=== PATIENT | male | born 1945 | race Caucasian/White ===

== ENCOUNTER → 2016-09-12 | Outpatient (CLI) | payer MEDICARE, OTHER ==
[2014-11-12 10:29] VITALS: BP 134/97
[~2016-09-12] MED LIST: CRESTOR20 MG PO; DOXAZOSIN4 MG PO; GABAPENTIN300 MG PO; GOOD SENSE ASPI81 M1 PO; HUMALOG 75/2100 U/ML SC; INVOKANA300 MG PO; LOSARTAN POTASS50 MG PO; LYRICA75 MG PO; METFORMIN500 MG PO; MULTI VITAMINS1 TAB PO; OMEGA-31000 MG PO; PRILOSEC 20MG20 MG PO
== END ==
LOC: LAB 09:46
DX: Z12.5 Encounter for screening for malignant neoplasm of prostate (principal); Z85.46 Personal history of malignant neoplasm of prostate

== ENCOUNTER → 2017-01-08 | Outpatient (CLI) | payer MEDICARE, OTHER ==
[2014-11-12 10:29] VITALS: BP 134/97
== END ==
LOC: MAMMO 07:56 → RAD 07:56
DX: N63.10 Unspecified lump in the right breast, unspecified quadrant (principal); R92.2 Inconclusive mammogram; M25.511 Pain in right shoulder; M19.011 Primary osteoarthritis, right shoulder; M75.81 Other shoulder lesions, right shoulder; M65.811 Other synovitis and tenosynovitis, right shoulder; W19.XXXA Unspecified fall, initial encounter; Y92.009 Unspecified place in unspecified non-institutional (private) residence as the place of occurrence of the external cause

== ENCOUNTER → 2017-01-10 | Outpatient (CLI) | payer MEDICARE, OTHER ==
[2014-11-12 10:29] VITALS: BP 134/97
== END ==
LOC: RAD 10:41
DX: M25.511 Pain in right shoulder (principal)

== ENCOUNTER 2017-03-07 09:00 | Outpatient (RCR) | payer MEDICARE, OTHER ==
[2014-11-12 10:29] VITALS: BP 134/97
== END 2017-03-07 09:30 | disposition home or self-care (01) ==
LOC: PT 09:00
DX: M25.511 Pain in right shoulder (principal)
CPT/HCPCS: G8978-GP; G8979-GP

== ENCOUNTER → 2017-04-09 | Outpatient (CLI) | payer MEDICARE, OTHER ==
[2014-11-12 10:29] VITALS: BP 134/97
== END ==
LOC: RAD 13:00
DX: M19.011 Primary osteoarthritis, right shoulder (principal); S46.811A Strain of other muscles, fascia and tendons at shoulder and upper arm level, right arm, initial encounter; M75.21 Bicipital tendinitis, right shoulder; M25.411 Effusion, right shoulder; M75.51 Bursitis of right shoulder

== ENCOUNTER → 2017-06-01 | Outpatient (CLI) | payer MEDICARE, OTHER ==
[2014-11-12 10:29] VITALS: BP 134/97
== END ==
LOC: RAD 08:51
DX: N28.89 Other specified disorders of kidney and ureter (principal); Z98.890 Other specified postprocedural states; Z90.49 Acquired absence of other specified parts of digestive tract
CPT/HCPCS: Q9967

== ENCOUNTER → 2017-06-14 | Outpatient (CLI) | payer MEDICARE, OTHER ==
[2014-11-12 10:29] VITALS: BP 134/97
== END ==
LOC: LAB 13:13
DX: Z85.46 Personal history of malignant neoplasm of prostate (principal)

== ENCOUNTER 2017-08-03 14:30 | Outpatient (RCR) | payer MEDICARE, OTHER ==
[2014-11-12 10:29] VITALS: BP 134/97
== END 2017-08-05 | disposition home or self-care (01) ==
LOC: PT
DX: Z47.89 Encounter for other orthopedic aftercare (principal)
CPT/HCPCS: G8985-GP

== ENCOUNTER → 2017-08-13 | Outpatient (CLI) | payer MEDICARE, OTHER ==
[2014-11-12 10:29] VITALS: BP 134/97
[2017-08-13 15:02] LABS: EOS # 0.5 (0.04-0.40); EOS % 4.7 % (0.0-4.0); HEMATOCRIT 39.1 % (42.0-52.0); HEMOGLOBIN 11.9 g/dL (13.5-18.0); LYMPH# 1.9 (1.50-4.00); MEAN CELL VOLUME 84 fl (78-100); MEAN CORPUSCULAR HEMOGLOBIN 26 pg (27-31); MEAN CORPUSCULAR HGB CONC 30 g/dL (33-37); MEAN PLATELET VOLUME 9.6 fl (7.4-10.4); MONO # 1.1 (0.20-0.80); NEU # 7.2 (1.40-6.50); PLATELET COUNT 304 K/mm3 (130-400); RED BLOOD COUNT 4.67 M/mm3 (4.20-5.60); RED CELL DISTRIBUTION WIDTH 15.2 % (11.5-14.5); WHITE BLOOD COUNT 10.7 K/mm3 (4.8-10.8)
[2017-08-13 15:18] LABS: ALBUMIN 3.7 g/dL (3.5-5.0); BUN/CREATININE RATIO 15.3 (6.0-26.0); CALCIUM 8.5 mg/dL (8.4-10.2); POTASSIUM 4.2 mmol/L (3.6-5.0); TOTAL BILIRUBIN 0.6 mg/dL (0.2-1.3); TOTAL PROTEIN 8.2 g/dL (6.3-8.2)
[2017-08-13 15:47] LABS: URINE APPEARANCE BLOODY; URINE COLOR RED
[2017-08-13 15:48] LABS: URINE BLOOD 250 ery/uL (NEGATIVE); URINE LEUKOCYTE ESTERASE 2+ (NEGATIVE); URINE NITRATE NEGATIVE (NEGATIVE)
[2017-08-13 15:49] LABS: URINE WBC >50 /hpf (0-3)
== END ==
LOC: LAB 14:46
PROVIDERS: Family Medicine
DX: C61 Malignant neoplasm of prostate (principal); N28.89 Other specified disorders of kidney and ureter; R30.0 Dysuria; R31.9 Hematuria, unspecified

== ENCOUNTER 2017-09-15 20:07 | Emergency (ER) | payer MEDICARE, OTHER ==
[~2017-09-15] VITALS: Ht 172.7 cm; Wt 84.5 kg
[2017-09-15 20:39] LABS: EOS # 0.2 (0.04-0.40); EOS % 1.7 % (0.0-4.0); HEMATOCRIT 33.3 % (42.0-52.0); HEMOGLOBIN 10.2 g/dL (13.5-18.0); LYMPH# 1.8 (1.50-4.00); MEAN CELL VOLUME 83 fl (78-100); MEAN CORPUSCULAR HEMOGLOBIN 25 pg (27-31); MEAN CORPUSCULAR HGB CONC 31 g/dL (33-37); MEAN PLATELET VOLUME 9.5 fl (7.4-10.4); MONO # 0.9 (0.20-0.80); NEU # 7.9 (1.40-6.50); PLATELET COUNT 243 K/mm3 (130-400); RED BLOOD COUNT 4.02 M/mm3 (4.20-5.60); RED CELL DISTRIBUTION WIDTH 15.9 % (11.5-14.5); WHITE BLOOD COUNT 10.8 K/mm3 (4.8-10.8)
[2017-09-15 20:47] LABS: URINE APPEARANCE CLEAR; URINE COLOR YELLOW; URINE KETONE NEGATIVE (NEGATIVE); URINE PROTEIN(semi-quant) NEGATIVE (NEGATIVE)
[2017-09-15 20:48] LABS: BUN/CREATININE RATIO 16.1 (6.0-26.0); CALCIUM 8.1 mg/dL (8.4-10.2)
[2017-09-15 20:48] LABS: URINE BILIRUBIN NEGATIVE (NEGATIVE); URINE BLOOD TRACE (NEGATIVE); URINE LEUKOCYTE ESTERASE 1+ (NEGATIVE); URINE NITRATE NEGATIVE (NEGATIVE); URINE UROBILINOGEN NORMAL (NORMAL)
[2017-09-15 21:00] LABS: POTASSIUM 4.2 mmol/L (3.6-5.0)
[2017-09-15] MEDS ORDERED: SEPTRA DS 8001 TAB PO (21:43)
[2017-09-15 21:52] VITALS: BP 110/68
== END 2017-09-15 21:52 | disposition home or self-care (01) ==
LOC: ED 20:07
PROVIDERS: Family Medicine
DX: N12 Tubulo-interstitial nephritis, not specified as acute or chronic (principal); E11.9 Type 2 diabetes mellitus without complications; I10 Essential (primary) hypertension; C61 Malignant neoplasm of prostate; Z85.528 Personal history of other malignant neoplasm of kidney; Z79.4 Long term (current) use of insulin; Z79.899 Other long term (current) drug therapy; Z79.82 Long term (current) use of aspirin; Z92.3 Personal history of irradiation

== ENCOUNTER → 2017-10-09 | Outpatient (CLI) | payer MEDICARE, OTHER ==
[2017-09-15 21:52] VITALS: BP 110/68
[~2017-10-09] MED LIST changes: +COZAAR25 M1 PO; -LOSARTAN POTASS50 MG PO; +METFORMIN HCL500 M2 PO; -METFORMIN500 MG PO; +NOVOLOG MIX 70/33 ML SQ; +SEPTRA DS 8001 TAB PO
[2017-10-09 19:39] LABS: EOS # 0.2 (0.04-0.40); EOS % 1.6 % (0.0-4.0); HEMATOCRIT 33.2 % (42.0-52.0); HEMOGLOBIN 10.1 g/dL (13.5-18.0); LYMPH# 1.8 (1.50-4.00); MEAN CELL VOLUME 82 fl (78-100); MEAN CORPUSCULAR HEMOGLOBIN 25 pg (27-31); MEAN CORPUSCULAR HGB CONC 30 g/dL (33-37); MEAN PLATELET VOLUME 9.7 fl (7.4-10.4); MONO # 1.1 (0.20-0.80); PLATELET COUNT 261 K/mm3 (130-400); RED BLOOD COUNT 4.04 M/mm3 (4.20-5.60); RED CELL DISTRIBUTION WIDTH 16.6 % (11.5-14.5); WHITE BLOOD COUNT 12.2 K/mm3 (4.8-10.8)
[2017-10-09 19:50] LABS: ALBUMIN 3.8 g/dL (3.5-5.0); BUN/CREATININE RATIO 15.9 (6.0-26.0); CALCIUM 8.7 mg/dL (8.4-10.2); POTASSIUM 4.6 mmol/L (3.6-5.0); TOTAL BILIRUBIN 0.5 mg/dL (0.2-1.3); TOTAL PROTEIN 7.7 g/dL (6.3-8.2)
[2017-10-09 19:52] LABS: URINE APPEARANCE HAZY; URINE COLOR YELLOW
[2017-10-09 19:53] LABS: URINE BILIRUBIN NEGATIVE (NEGATIVE); URINE BLOOD TRACE (NEGATIVE); URINE KETONE NEGATIVE (NEGATIVE); URINE LEUKOCYTE ESTERASE 2+ (NEGATIVE); URINE NITRATE NEGATIVE (NEGATIVE); URINE PROTEIN(semi-quant) 1+ mg/dL (NEGATIVE); URINE UROBILINOGEN NORMAL (NORMAL); URINE WBC >50 /hpf (0-3)
== END ==
LOC: LAB 19:16
PROVIDERS: Nurse Practitioner Family
DX: R53.81 Other malaise (principal); N39.0 Urinary tract infection, site not specified

== ENCOUNTER 2017-10-10 18:27 | Emergency (ER) | payer MEDICARE, OTHER ==
[~2017-10-10] VITALS: Ht 172.7 cm; Wt 86.7 kg
[~2017-10-10 18:27] MED LIST changes: -NOVOLOG MIX 70/33 ML SQ
[2017-10-10] MEDS ORDERED: NOVOLOG MIX 70/33 ML SQ (19:01)
[2017-10-10 19:39] LABS: HEMATOCRIT 33.9 % (42.0-52.0); HEMOGLOBIN 10.4 g/dL (13.5-18.0); MEAN CELL VOLUME 82 fl (78-100); MEAN CORPUSCULAR HEMOGLOBIN 25 pg (27-31); MEAN CORPUSCULAR HGB CONC 31 g/dL (33-37); MEAN PLATELET VOLUME 10.5 fl (7.4-10.4); PLATELET COUNT 244 K/mm3 (130-400); RED BLOOD COUNT 4.16 M/mm3 (4.20-5.60); RED CELL DISTRIBUTION WIDTH 16.9 % (11.5-14.5)
[2017-10-10 19:47] LABS: ALBUMIN 3.9 g/dL (3.5-5.0); BUN/CREATININE RATIO 15.7 (6.0-26.0); CALCIUM 8.7 mg/dL (8.4-10.2); POTASSIUM 4.3 mmol/L (3.6-5.0); TOTAL PROTEIN 8.2 g/dL (6.3-8.2)
[2017-10-10 20:11] LABS: LYMPHOCYTE 12 % (20-51); MONOCYTE 7 % (3-10); NEUTROPHILS 80 % (42-75)
[2017-10-10 20:14] LABS: URINE APPEARANCE CLOUDY; URINE BILIRUBIN NEGATIVE (NEGATIVE); URINE BLOOD TRACE (NEGATIVE); URINE COLOR YELLOW; URINE KETONE NEGATIVE (NEGATIVE); URINE LEUKOCYTE ESTERASE 2+ (NEGATIVE); URINE NITRATE POSITIVE (NEGATIVE); URINE PROTEIN(semi-quant) 1+ mg/dL (NEGATIVE); URINE UROBILINOGEN NORMAL (NORMAL)
[2017-10-10 20:15] LABS: URINE WBC >50 /hpf (0-3)
[2017-10-10 21:52] VITALS: BP 122/59
[2017-10-10 22:20] VITALS: BP 122/59
[2017-10-11 02:53] VITALS: BP 137/64
[2017-10-11 06:24] VITALS: BP 123/63
[2017-10-11 06:29] LABS: HEMATOCRIT 28.4 % (42.0-52.0); HEMOGLOBIN 8.7 g/dL (13.5-18.0); MEAN CELL VOLUME 82 fl (78-100); MEAN CORPUSCULAR HEMOGLOBIN 25 pg (27-31); MEAN CORPUSCULAR HGB CONC 31 g/dL (33-37); MEAN PLATELET VOLUME 9.4 fl (7.4-10.4); PLATELET COUNT 210 K/mm3 (130-400); RED BLOOD COUNT 3.48 M/mm3 (4.20-5.60); RED CELL DISTRIBUTION WIDTH 16.7 % (11.5-14.5); WHITE BLOOD COUNT 14.3 K/mm3 (4.8-10.8)
[2017-10-11 06:40] LABS: LYMPHOCYTE 13 % (20-51); MONOCYTE 7 % (3-10); NEUTROPHILS 80 % (42-75)
[2017-10-11 07:07] LABS: CALCIUM 7.7 mg/dL (8.4-10.2); POTASSIUM 3.6 mmol/L (3.6-5.0)
== END 2017-10-10 21:30 | disposition other institution (70) ==
LOC: ED 18:27 → MED/SURG 21:49 → ED 22:11
PROVIDERS: Nurse Practitioner; Physician Assistant
DX: N39.0 Urinary tract infection, site not specified (principal); R31.9 Hematuria, unspecified; N28.9 Disorder of kidney and ureter, unspecified; E11.9 Type 2 diabetes mellitus without complications; Z79.4 Long term (current) use of insulin; I10 Essential (primary) hypertension; Z85.528 Personal history of other malignant neoplasm of kidney; Z87.891 Personal history of nicotine dependence; C61 Malignant neoplasm of prostate; Z79.82 Long term (current) use of aspirin; Z79.899 Other long term (current) drug therapy
CPT/HCPCS: J0696; J1650; J1815; J7030

== ENCOUNTER 2017-10-10 22:11 | Inpatient (IN) | payer MEDICARE, OTHER ==
[~2017-10-10] VITALS: Ht 172.7 cm; Wt 86.7 kg
[~2017-10-10 22:11] MED LIST changes: +NOVOLOG MIX 70/33 ML SQ
[2017-10-11 11:40] VITALS: BP 101/97
[2017-10-11 15:08] VITALS: BP 115/64
[2017-10-11 18:06] VITALS: BP 112/57
[2017-10-11 23:20] VITALS: BP 115/57
[2017-10-12 03:12] VITALS: BP 127/72
[2017-10-12 06:21] VITALS: BP 118/66
[2017-10-12 07:36] LABS: HEMATOCRIT 26.3 % (42.0-52.0); MEAN CELL VOLUME 82 fl (78-100); MEAN CORPUSCULAR HEMOGLOBIN 25 pg (27-31); MEAN CORPUSCULAR HGB CONC 30 g/dL (33-37); MEAN PLATELET VOLUME 10.2 fl (7.4-10.4); PLATELET COUNT 203 K/mm3 (130-400); RED BLOOD COUNT 3.22 M/mm3 (4.20-5.60); RED CELL DISTRIBUTION WIDTH 16.9 % (11.5-14.5); WHITE BLOOD COUNT 10.3 K/mm3 (4.8-10.8)
[2017-10-12 07:41] LABS: CALCIUM 7.4 mg/dL (8.4-10.2); POTASSIUM 3.7 mmol/L (3.6-5.0)
[2017-10-12 08:16] LABS: LYMPHOCYTE 9 % (20-51); MONOCYTE 6 % (3-10); NEUTROPHILS 84 % (42-75)
[2017-10-12 11:15] VITALS: BP 126/66
[2017-10-12 12:56] VITALS: BP 122/59
[2017-10-12 15:16] VITALS: BP 111/54
[2017-10-12 17:34] VITALS: BP 133/62
[2017-10-13] VITALS (8 sets, daily range): BP systolic 104–139; BP diastolic 51–68
[2017-10-13 09:23] LABS: CALCIUM 7.9 mg/dL (8.4-10.2)
[2017-10-13 10:34] LABS: POTASSIUM 4.3 mmol/L (3.6-5.0)
[2017-10-13 13:04] LABS: EOS # 0.3 (0.04-0.40); EOS % 2.7 % (0.0-4.0); HEMATOCRIT 30.2 % (42.0-52.0); HEMOGLOBIN 9.1 g/dL (13.5-18.0); LYMPH# 1.3 (1.50-4.00); MEAN CELL VOLUME 82 fl (78-100); MEAN CORPUSCULAR HEMOGLOBIN 25 pg (27-31); MEAN CORPUSCULAR HGB CONC 30 g/dL (33-37); MONO # 0.8 (0.20-0.80); NEU # 7.9 (1.40-6.50); PLATELET COUNT 215 K/mm3 (130-400); RED BLOOD COUNT 3.69 M/mm3 (4.20-5.60); RED CELL DISTRIBUTION WIDTH 17.5 % (11.5-14.5); WHITE BLOOD COUNT 10.2 K/mm3 (4.8-10.8)
[2017-10-13 19:10] LABS: URINE APPEARANCE HAZY; URINE COLOR YELLOW; URINE PROTEIN(semi-quant) 2+ mg/dL (NEGATIVE)
[2017-10-13 19:11] LABS: URINE BILIRUBIN NEGATIVE (NEGATIVE); URINE BLOOD 50 ery/uL (NEGATIVE); URINE KETONE NEGATIVE (NEGATIVE); URINE LEUKOCYTE ESTERASE 1+ (NEGATIVE); URINE NITRATE NEGATIVE (NEGATIVE); URINE UROBILINOGEN NORMAL (NORMAL); URINE WBC 16-30 /hpf (0-3)
[2017-10-14 03:10] VITALS: BP 159/96
[2017-10-14 06:37] VITALS: BP 134/59
[2017-10-14 11:06] VITALS: BP 136/77
[2017-10-14 15:00] VITALS: BP 126/73
[2017-10-14 18:28] VITALS: BP 154/75
[2017-10-14 23:03] VITALS: BP 134/66
[2017-10-15 03:20] VITALS: BP 130/66
[2017-10-15 06:04] VITALS: BP 156/70
[2017-10-15 06:39] LABS: EOS # 0.3 (0.04-0.40); EOS % 4.9 % (0.0-4.0); HEMATOCRIT 28.3 % (42.0-52.0); HEMOGLOBIN 8.6 g/dL (13.5-18.0); MEAN CELL VOLUME 81 fl (78-100); MEAN CORPUSCULAR HEMOGLOBIN 25 pg (27-31); MEAN CORPUSCULAR HGB CONC 30 g/dL (33-37); MEAN PLATELET VOLUME 9.7 fl (7.4-10.4); MONO # 0.5 (0.20-0.80); NEU # 4.4 (1.40-6.50); PLATELET COUNT 240 K/mm3 (130-400); RED BLOOD COUNT 3.49 M/mm3 (4.20-5.60); RED CELL DISTRIBUTION WIDTH 17.1 % (11.5-14.5); WHITE BLOOD COUNT 6.3 K/mm3 (4.8-10.8)
[2017-10-15 06:51] LABS: CALCIUM 8.2 mg/dL (8.4-10.2); POTASSIUM 4.1 mmol/L (3.6-5.0)
[2017-10-15 07:08] VITALS: BP 178/95
[2017-10-15 08:46] LABS: URINE APPEARANCE CLEAR; URINE COLOR YELLOW; URINE PROTEIN(semi-quant) TRACE mg/dL (NEGATIVE)
[2017-10-15 08:47] LABS: URINE BILIRUBIN NEGATIVE (NEGATIVE); URINE BLOOD NEGATIVE (NEGATIVE); URINE GLUCOSE 50 mg/dL mg/dL (NEGATIVE); URINE KETONE NEGATIVE (NEGATIVE); URINE LEUKOCYTE ESTERASE NEGATIVE (NEGATIVE); URINE MUCUS PRESENT (NOT PRESENT); URINE NITRATE NEGATIVE (NEGATIVE); URINE UROBILINOGEN NORMAL (NORMAL)
[2017-10-15] MEDS ORDERED: LEVAQUIN 750MG750 M1 PO (10:45)
[2017-10-15] MEDS ORDERED: FERROUS SU325 MG/TAB PO (10:45)
[2017-10-15] MEDS ORDERED: LYRICA75 MG PO (10:46)
== END 2017-10-15 10:45 | disposition home or self-care (01) | DRG 690 ==
LOC: MED/SURG 22:11
PROVIDERS: Family Medicine; Nurse Practitioner Primary Care; ADMIT Physician Assistant
DX: N10 Acute pyelonephritis (principal); Z85.520 Personal history of malignant carcinoid tumor of kidney; D50.9 Iron deficiency anemia, unspecified; E11.9 Type 2 diabetes mellitus without complications; I10 Essential (primary) hypertension; B96.89 Other specified bacterial agents as the cause of diseases classified elsewhere; K21.9 Gastro-esophageal reflux disease without esophagitis; Z79.4 Long term (current) use of insulin
CPT/HCPCS: J1650; J1815; J1885; J2185; J2270; J3370; J7030; J7050; Q9967

== ENCOUNTER → 2017-10-22 | Outpatient (CLI) | payer MEDICARE, OTHER ==
[2017-10-15 07:08] VITALS: BP 178/95
[~2017-10-22] MED LIST changes: +FERROUS SU325 MG/TAB PO; +LEVAQUIN 750MG750 M1 PO
== END ==
LOC: RAD 11:55
DX: N28.89 Other specified disorders of kidney and ureter (principal); N32.9 Bladder disorder, unspecified; N13.30 Unspecified hydronephrosis; J90 Pleural effusion, not elsewhere classified; Z98.890 Other specified postprocedural states; N12 Tubulo-interstitial nephritis, not specified as acute or chronic; Z90.5 Acquired absence of kidney
CPT/HCPCS: Q9967

== ENCOUNTER → 2017-12-28 | Outpatient (CLI) | payer MEDICARE, OTHER ==
[2017-12-28 10:30] LABS: POTASSIUM 4.4 mmol/L (3.6-5.0)
== END ==
LOC: RAD 09:56
PROVIDERS: Family Medicine
DX: N13.30 Unspecified hydronephrosis (principal); K57.30 Diverticulosis of large intestine without perforation or abscess without bleeding; N28.9 Disorder of kidney and ureter, unspecified; R16.1 Splenomegaly, not elsewhere classified; J90 Pleural effusion, not elsewhere classified; M54.9 Dorsalgia, unspecified; Z90.89 Acquired absence of other organs; Z90.49 Acquired absence of other specified parts of digestive tract; Z90.5 Acquired absence of kidney; Z85.528 Personal history of other malignant neoplasm of kidney; C64.2 Malignant neoplasm of left kidney, except renal pelvis

== ENCOUNTER 2018-02-22 14:34 | Emergency (ER) | payer MEDICARE, OTHER ==
[~2018-02-22 14:34] MED LIST changes: +CARDURA8 MG PO; -DOXAZOSIN4 MG PO; +FISH OIL 1,2001 EACH PO; -OMEGA-31000 MG PO
[2018-02-22] MEDS ORDERED: LYRICA75 MG PO (15:44)
[2018-02-22 15:47] LABS: ALBUMIN 4.3 g/dL (3.5-5.0); CALCIUM 9.1 mg/dL (8.4-10.2); POTASSIUM 4.3 mmol/L (3.6-5.0); TOTAL BILIRUBIN 0.6 mg/dL (0.2-1.3); TOTAL PROTEIN 7.9 g/dL (6.3-8.2)
[2018-02-22] MEDS ORDERED: INVOKANA300 MG PO (15:47)
[2018-02-22] MEDS ORDERED: MASON NATURAL325 MG PO (15:48)
[2018-02-22] MEDS ORDERED: PAIN RELIEVER500 M2 PO (15:49)
[2018-02-22 15:57] LABS: D-DIMER 1.31 mg/L FEU (0.15-0.50)
[2018-02-22 16:02] LABS: EOS # 0.3 (0.04-0.40); EOS % 3.9 % (0.0-4.0); HEMATOCRIT 35.9 % (42.0-52.0); HEMOGLOBIN 11.3 g/dL (13.5-18.0); LYMPH# 1.8 (1.50-4.00); MEAN CELL VOLUME 81 fl (78-100); MEAN CORPUSCULAR HEMOGLOBIN 26 pg (27-31); MEAN CORPUSCULAR HGB CONC 32 g/dL (33-37); MEAN PLATELET VOLUME 10.9 fl (7.4-10.4); MONO # 0.6 (0.20-0.80); PLATELET COUNT 234 K/mm3 (130-400); RED BLOOD COUNT 4.42 M/mm3 (4.20-5.60); RED CELL DISTRIBUTION WIDTH 16.2 % (11.5-14.5); WHITE BLOOD COUNT 6.7 K/mm3 (4.8-10.8)
[2018-02-22 16:54] LABS: URINE APPEARANCE CLEAR; URINE COLOR YELLOW
[2018-02-22 16:55] LABS: URINE BILIRUBIN NEGATIVE (NEGATIVE); URINE BLOOD NEGATIVE (NEGATIVE); URINE KETONE NEGATIVE (NEGATIVE); URINE LEUKOCYTE ESTERASE NEGATIVE (NEGATIVE); URINE NITRATE NEGATIVE (NEGATIVE); URINE PROTEIN(semi-quant) NEGATIVE (NEGATIVE); URINE UROBILINOGEN NORMAL (NORMAL); URINE WBC 0-1 /hpf (0-3)
[2018-02-22 17:25] VITALS: BP 155/72
== END 2018-02-22 17:31 | disposition home or self-care (01) ==
LOC: ED 14:34
PROVIDERS: Physician Assistant
DX: R10.32 Left lower quadrant pain (principal); R79.89 Other specified abnormal findings of blood chemistry; E11.9 Type 2 diabetes mellitus without complications; Z79.4 Long term (current) use of insulin; Z79.82 Long term (current) use of aspirin; Z79.899 Other long term (current) drug therapy; Z88.5 Allergy status to narcotic agent; Z85.46 Personal history of malignant neoplasm of prostate; Z85.528 Personal history of other malignant neoplasm of kidney; Z90.49 Acquired absence of other specified parts of digestive tract; Z90.5 Acquired absence of kidney; K44.9 Diaphragmatic hernia without obstruction or gangrene
CPT/HCPCS: J1650; Q9967

== ENCOUNTER 2018-02-24 16:57 | Outpatient (RCR) | payer MEDICARE, OTHER ==
[2018-02-23 17:05] VITALS: BP 160/59
[2018-02-23 17:10] VITALS: BP 130/59
[~2018-02-24] VITALS: Ht 172.7 cm; Wt 91.3 kg
[~2018-02-24 16:57] MED LIST changes: +MASON NATURAL325 MG PO; +PAIN RELIEVER500 M2 PO
[2018-02-24 17:00] VITALS: BP 125/59
[2018-02-24 17:06] VITALS: BP 125/58
[2018-03-04] MEDS ORDERED: NOVOLOG MIX 70/33 ML SQ (13:23)
== END 2018-02-24 21:00 | disposition home or self-care (01) ==
LOC: AMSURD 16:57
DX: R10.32 Left lower quadrant pain (principal); R19.09 Other intra-abdominal and pelvic swelling, mass and lump; R79.89 Other specified abnormal findings of blood chemistry
CPT/HCPCS: J1650

== ENCOUNTER → 2018-02-25 | Outpatient (CLI) | payer MEDICARE, OTHER ==
[2018-02-24 17:06] VITALS: BP 125/58
== END ==
LOC: RAD 06:54
DX: M79.652 Pain in left thigh (principal)

== ENCOUNTER → 2018-03-04 | Outpatient (CLI) | payer MEDICARE, OTHER ==
[~2018-03-04] VITALS: Ht 172.7 cm; Wt 90.9 kg
[2018-03-04 12:07] LABS: EOS # 0.3 (0.04-0.40); EOS % 3.9 % (0.0-4.0); HEMATOCRIT 37.4 % (42.0-52.0); HEMOGLOBIN 11.6 g/dL (13.5-18.0); LYMPH# 1.8 (1.50-4.00); MEAN CELL VOLUME 82 fl (78-100); MEAN CORPUSCULAR HEMOGLOBIN 25 pg (27-31); MEAN CORPUSCULAR HGB CONC 31 g/dL (33-37); MONO # 0.6 (0.20-0.80); NEU # 4.4 (1.40-6.50); PLATELET COUNT 261 K/mm3 (130-400); RED BLOOD COUNT 4.57 M/mm3 (4.20-5.60); RED CELL DISTRIBUTION WIDTH 15.9 % (11.5-14.5); WHITE BLOOD COUNT 7.2 K/mm3 (4.8-10.8)
[2018-03-04 12:27] LABS: ALBUMIN 3.9 g/dL (3.5-5.0); CALCIUM 9.3 mg/dL (8.4-10.2); POTASSIUM 4.5 mmol/L (3.6-5.0); TOTAL BILIRUBIN 0.5 mg/dL (0.2-1.3); TOTAL PROTEIN 7.4 g/dL (6.3-8.2)
[2018-03-04 12:39] VITALS: BP 151/73
== END ==
LOC: AMSURD 11:43
PROVIDERS: Family Medicine
DX: J90 Pleural effusion, not elsewhere classified (principal); R07.9 Chest pain, unspecified; I10 Essential (primary) hypertension

== ENCOUNTER → 2018-03-05 | Outpatient (CLI) | payer MEDICARE, OTHER ==
[2018-03-04 12:39] VITALS: BP 151/73
[2018-03-05 14:34] LABS: HEMATOCRIT 37.7 % (42.0-52.0); HEMOGLOBIN 11.6 g/dL (13.5-18.0); MEAN PLATELET VOLUME 9.9 fl (7.4-10.4); RED BLOOD COUNT 4.58 M/mm3 (4.20-5.60); RED CELL DISTRIBUTION WIDTH 15.8 % (11.5-14.5); WHITE BLOOD COUNT 6.4 K/mm3 (4.8-10.8)
[2018-03-05 14:41] LABS: ALBUMIN 4.2 g/dL (3.5-5.0); CALCIUM 9.2 mg/dL (8.4-10.2); POTASSIUM 4.1 mmol/L (3.6-5.0); TOTAL BILIRUBIN 0.6 mg/dL (0.2-1.3); TOTAL PROTEIN 7.9 g/dL (6.3-8.2)
== END ==
LOC: LAB 14:07
PROVIDERS: Urology
DX: C64.2 Malignant neoplasm of left kidney, except renal pelvis (principal); R50.9 Fever, unspecified; R10.9 Unspecified abdominal pain; Z85.46 Personal history of malignant neoplasm of prostate

== ENCOUNTER → 2018-05-10 | Outpatient (CLI) | payer MEDICARE, OTHER ==
[2018-03-04 12:39] VITALS: BP 151/73
== END ==
LOC: RAD 14:03
DX: Z18.9 Retained foreign body fragments, unspecified material (principal)

== ENCOUNTER → 2018-10-11 | Outpatient (CLI) | payer MEDICARE, OTHER ==
[2018-03-04 12:39] VITALS: BP 151/73
== END ==
LOC: LAB 11:10
DX: Z85.46 Personal history of malignant neoplasm of prostate (principal)

== ENCOUNTER 2019-01-28 20:26 | Emergency (ER) | payer MEDICARE, OTHER ==
[~2019-01-28] VITALS: Ht 172.7 cm; Wt 96.8 kg
[2019-01-28 21:52] LABS: EOS # 0.2 (0.04-0.40); EOS % 3.5 % (0.0-4.0); HEMATOCRIT 39.7 % (42.0-52.0); HEMOGLOBIN 12.7 g/dL (13.5-18.0); LYMPH# 1.5 (1.50-4.00); MEAN CELL VOLUME 87 fl (78-100); MEAN CORPUSCULAR HEMOGLOBIN 28 pg (27-31); MEAN CORPUSCULAR HGB CONC 32 g/dL (33-37); MONO # 0.6 (0.20-0.80); NEU # 4.2 (1.40-6.50); PLATELET COUNT 187 K/mm3 (130-400); RED BLOOD COUNT 4.57 M/mm3 (4.20-5.60); RED CELL DISTRIBUTION WIDTH 14.9 % (11.5-14.5); WHITE BLOOD COUNT 6.6 K/mm3 (4.8-10.8)
[2019-01-28 22:04] LABS: SODIUM 140 mmol/L (136-145)
[2019-01-28 22:05] LABS: CALCIUM 9.2 mg/dL (8.3-10.5)
[2019-01-28 22:06] LABS: GLUCOSE 197 mg/dL (75-110); TOTAL PROTEIN 7.5 g/dL (6.2-8.1)
[2019-01-28 22:07] LABS: CARBON DIOXIDE 23 mmol/L (23-31)
[2019-01-28 22:08] LABS: TOTAL BILIRUBIN 0.5 mg/dL (0.2-1.2)
[2019-01-28 22:12] LABS: AST-SGOT 21 U/L (5-34)
[2019-01-28 22:13] LABS: ALT/SGPT 13 U/L (0-55); LIPASE 36 U/L (8-78)
[2019-01-28 22:16] LABS: URINE APPEARANCE CLEAR; URINE BILIRUBIN NEGATIVE (NEGATIVE); URINE BLOOD TRACE (NEGATIVE); URINE COLOR YELLOW; URINE KETONE NEGATIVE (NEGATIVE); URINE LEUKOCYTE ESTERASE NEGATIVE (NEGATIVE); URINE NITRATE NEGATIVE (NEGATIVE); URINE PROTEIN(semi-quant) NEGATIVE (NEGATIVE); URINE UROBILINOGEN NORMAL (NORMAL); URINE WBC 0-1 /hpf (0-3)
[2019-01-28] MEDS ORDERED: DOXAZOSIN MESYLA8 M1 PO (22:16)
[2019-01-28] MEDS ORDERED: CARBIDOPA/LEVODOPA PO (22:18)
[2019-01-28 22:20] LABS: TROPONIN-I < 0.03 ng/mL (<0.030)
[2019-01-29 01:20] VITALS: BP 142/87
== END 2019-01-29 01:21 | disposition home or self-care (01) ==
LOC: ED 20:26
PROVIDERS: Nurse Practitioner Family
DX: N13.0 Hydronephrosis with ureteropelvic junction obstruction (principal); N28.9 Disorder of kidney and ureter, unspecified; I10 Essential (primary) hypertension; E11.9 Type 2 diabetes mellitus without complications; K21.9 Gastro-esophageal reflux disease without esophagitis; Z90.5 Acquired absence of kidney; Z79.84 Long term (current) use of oral hypoglycemic drugs; Z87.19 Personal history of other diseases of the digestive system; Z90.49 Acquired absence of other specified parts of digestive tract; Z98.890 Other specified postprocedural states; Z87.891 Personal history of nicotine dependence
CPT/HCPCS: J1885; J3490; J7030; Q9967

== ENCOUNTER → 2019-02-05 | Outpatient (CLI) | payer MEDICARE, OTHER ==
[2019-01-29 01:20] VITALS: BP 142/87
[~2019-02-05] MED LIST changes: +CARBIDOPA/LEVODOPA PO; +DOXAZOSIN MESYLA8 M1 PO
== END ==
LOC: RAD 07:34
DX: M48.07 Spinal stenosis, lumbosacral region (principal); M47.817 Spondylosis without myelopathy or radiculopathy, lumbosacral region; C61 Malignant neoplasm of prostate; C64.2 Malignant neoplasm of left kidney, except renal pelvis

== ENCOUNTER → 2019-02-20 | Outpatient (CLI) | payer MEDICARE, OTHER ==
[2019-01-29 01:20] VITALS: BP 142/87
== END ==
LOC: RAD 07:00
DX: M48.061 Spinal stenosis, lumbar region without neurogenic claudication (principal); M47.816 Spondylosis without myelopathy or radiculopathy, lumbar region
CPT/HCPCS: A9585

== ENCOUNTER 2019-05-02 11:00 | Outpatient (RCR) | payer MEDICARE, OTHER | END 2019-05-02 11:30 | disposition still patient (30) | LOC: PT 11:00 | DX: M54.5 Low back pain (principal); G89.29 Other chronic pain ==

== ENCOUNTER → 2019-07-29 | Outpatient (CLI) | payer MEDICARE, OTHER | LOC: RAD 15:21 | DX: M88.9 Osteitis deformans of unspecified bone (principal); R55 Syncope and collapse; M54.5 Low back pain; G89.29 Other chronic pain ==

== ENCOUNTER → 2019-07-31 | Outpatient (CLI) | payer MEDICARE, OTHER | LOC: RAD 09:52 → VAS 09:52 → RAD 10:00 → VAS 10:00 | DX: I65.23 Occlusion and stenosis of bilateral carotid arteries (principal); G31.9 Degenerative disease of nervous system, unspecified ==

== ENCOUNTER → 2019-08-08 | Outpatient (CLI) | payer MEDICARE, OTHER | LOC: CARDREHAB 07:47 → CARDLAB 09:56 | DX: R07.9 Chest pain, unspecified (principal) | CPT/HCPCS: A9500 ==

== ENCOUNTER → 2019-08-15 | Outpatient (CLI) | payer MEDICARE, OTHER | LOC: LAB 08:30 | DX: Z01.818 Encounter for other preprocedural examination (principal); Z20.828 Contact with and (suspected) exposure to other viral communicable diseases ==

== ENCOUNTER → 2019-08-20 | Day surgery (SDC) | payer MEDICARE, OTHER | END | disposition home or self-care (01) | LOC: MSO 06:59 | DX: H25.811 Combined forms of age-related cataract, right eye (principal); H35.371 Puckering of macula, right eye; C61 Malignant neoplasm of prostate; E11.9 Type 2 diabetes mellitus without complications; I10 Essential (primary) hypertension; G20 Parkinson's disease; Z79.4 Long term (current) use of insulin; Z79.899 Other long term (current) drug therapy; Z79.82 Long term (current) use of aspirin; K21.9 Gastro-esophageal reflux disease without esophagitis; K44.9 Diaphragmatic hernia without obstruction or gangrene | CPT/HCPCS: 00142; J0171; J2250; V2632 ==

== ENCOUNTER → 2019-11-21 | Outpatient (CLI) | payer MEDICARE, OTHER | LOC: RAD 07:26 | DX: C64.2 Malignant neoplasm of left kidney, except renal pelvis (principal); Z85.46 Personal history of malignant neoplasm of prostate ==

== ENCOUNTER → 2019-11-25 | Outpatient (CLI) | payer MEDICARE, OTHER | LOC: LAB 09:43 | DX: C64.2 Malignant neoplasm of left kidney, except renal pelvis (principal); Z85.46 Personal history of malignant neoplasm of prostate ==

== ENCOUNTER → 2020-01-19 | Outpatient (CLI) | payer MEDICARE, OTHER ==
[2020-01-19 10:43] LABS: HEMATOCRIT 40.9 % (42.0-52.0); HEMOGLOBIN 12.8 g/dL (13.5-18.0); MEAN PLATELET VOLUME 9.5 fl (7.4-10.4); RED BLOOD COUNT 4.73 M/mm3 (4.20-5.60); RED CELL DISTRIBUTION WIDTH 15.5 % (11.5-14.5); WHITE BLOOD COUNT 6.8 K/mm3 (4.8-10.8)
[2020-01-19 10:56] LABS: ALBUMIN 3.5 g/dL (3.4-4.8)
[2020-01-19 10:57] LABS: POTASSIUM 4.6 mmol/L (3.5-5.1)
[2020-01-19 10:58] LABS: CALCIUM 8.7 mg/dL (8.3-10.5)
[2020-01-19 11:01] LABS: TOTAL BILIRUBIN 0.8 mg/dL (0.2-1.2)
== END ==
LOC: LAB 10:17
PROVIDERS: Family Medicine
DX: D64.9 Anemia, unspecified (principal); R79.89 Other specified abnormal findings of blood chemistry

== ENCOUNTER → 2020-05-27 | Outpatient (CLI) | payer MEDICARE, OTHER | LOC: LAB 07:42 → RAD 07:42 | DX: R10.30 Lower abdominal pain, unspecified (principal); Z90.49 Acquired absence of other specified parts of digestive tract; Z90.5 Acquired absence of kidney | CPT/HCPCS: Q9967 ==

== ENCOUNTER → 2020-08-06 | Outpatient (CLI) | payer MEDICARE, OTHER | LOC: RAD 17:20 | DX: S82.54XA Nondisplaced fracture of medial malleolus of right tibia, initial encounter for closed fracture (principal); S82.64XA Nondisplaced fracture of lateral malleolus of right fibula, initial encounter for closed fracture; M19.041 Primary osteoarthritis, right hand ==

== ENCOUNTER → 2020-08-11 | Outpatient (CLI) | payer MEDICARE, OTHER | LOC: VAS 13:53 → RAD 14:00 | DX: I65.23 Occlusion and stenosis of bilateral carotid arteries (principal) ==

== ENCOUNTER → 2020-08-20 | Outpatient (CLI) | payer MEDICARE, OTHER | LOC: RAD 14:15 | DX: R60.0 Localized edema (principal) ==

== ENCOUNTER → 2020-12-15 | Outpatient (CLI) | payer MEDICARE, OTHER | LOC: LAB 09:51 | DX: Z12.5 Encounter for screening for malignant neoplasm of prostate (principal); Z85.46 Personal history of malignant neoplasm of prostate ==

== ENCOUNTER → 2020-12-24 | Outpatient (CLI) | payer MEDICARE, OTHER | LOC: LAB 12-23 13:20 → RAD 09:30 | DX: N13.30 Unspecified hydronephrosis (principal); R10.12 Left upper quadrant pain; Z85.46 Personal history of malignant neoplasm of prostate ==

== ENCOUNTER → 2021-09-13 | Outpatient (CLI) | payer MEDICARE, OTHER ==
[2021-09-13 08:27] LABS: BASO # 0.04 K/mm3 (0.02-0.10); EOS # 0.26 K/mm3 (0.04-0.40); EOS % 5.2 % (0.0-4.0); HEMATOCRIT 36.3 % (42.0-52.0); HEMOGLOBIN 10.6 g/dL (13.5-18.0); LYMPH# 1.45 K/mm3 (1.50-4.00); MEAN CELL VOLUME 72 fl (78-100); MEAN CORPUSCULAR HEMOGLOBIN 21 pg (27-31); MEAN CORPUSCULAR HGB CONC 29 g/dL (33-37); MEAN PLATELET VOLUME 9.6 fl (7.4-10.4); MONO # 0.58 K/mm3 (0.20-0.80); NEU # 2.63 K/mm3 (1.40-6.50); PLATELET COUNT 182 K/mm3 (130-400); RED BLOOD COUNT 5.03 M/mm3 (4.20-5.60); RED CELL DISTRIBUTION WIDTH 18.5 % (11.5-14.5)
[2021-09-13 08:34] LABS: CALCIUM 8.9 mg/dL (8.3-10.5)
[2021-09-13 08:37] LABS: TOTAL BILIRUBIN 0.6 mg/dL (0.2-1.2)
== END ==
LOC: LAB 07:50
PROVIDERS: Family Medicine
DX: Z00.00 Encounter for general adult medical examination without abnormal findings (principal); Z12.5 Encounter for screening for malignant neoplasm of prostate; E11.9 Type 2 diabetes mellitus without complications; E78.5 Hyperlipidemia, unspecified

== ENCOUNTER → 2021-11-17 | Outpatient (CLI) | payer MEDICARE, OTHER ==
[~2021-11-17] VITALS: Ht 172.7 cm; Wt 96.8 kg
[2021-11-17 09:17] VITALS: BP 149/65
== END ==
LOC: AMSURD 09:06
DX: Z79.899 Other long term (current) drug therapy (principal)
CPT/HCPCS: J1756

== ENCOUNTER → 2022-02-08 | Outpatient (CLI) | payer MEDICARE, OTHER | LOC: LAB 09:29 | DX: Z85.46 Personal history of malignant neoplasm of prostate (principal) ==

== ENCOUNTER → 2022-04-10 | Outpatient (CLI) | payer MEDICARE, OTHER ==
[2022-04-10 10:25] LABS: BASO # 0.03 K/mm3 (0.02-0.10); EOS # 0.23 K/mm3 (0.04-0.40); EOS % 4.8 % (0.0-4.0); HEMATOCRIT 40.6 % (42.0-52.0); HEMOGLOBIN 12.1 g/dL (13.5-18.0); LYMPH# 1.48 K/mm3 (1.50-4.00); MEAN CELL VOLUME 78 fl (78-100); MEAN CORPUSCULAR HEMOGLOBIN 23 pg (27-31); MEAN CORPUSCULAR HGB CONC 30 g/dL (33-37); MEAN PLATELET VOLUME 10.6 fl (7.4-10.4); MONO # 0.43 K/mm3 (0.20-0.80); NEU # 2.61 K/mm3 (1.40-6.50); PLATELET COUNT 185 K/mm3 (130-400); RED BLOOD COUNT 5.23 M/mm3 (4.20-5.60); RED CELL DISTRIBUTION WIDTH 19.7 % (11.5-14.5); WHITE BLOOD COUNT 4.8 K/mm3 (4.8-10.8)
== END ==
LOC: LAB 09:16
PROVIDERS: Family Medicine
DX: E61.1 Iron deficiency (principal)

== ENCOUNTER → 2022-11-29 | Outpatient (CLI) | payer MEDICARE, OTHER ==
[~2022-11-29] VITALS: Ht 172.7 cm; Wt 92.0 kg
[~2022-11-29] MED LIST changes: +FERROUS SULFAT325 M4 PO; +FLOMAX0.4 MG PO; +LYRICA100 MG PO; +NAMENDA10 MG PO; +SIMETHICONE80 M1 PO; +[UNRECOGNIZED DRUG - OTHER] PO
[2022-11-29 15:06] VITALS: BP 160/77
== END ==
LOC: AMSURD 14:44
DX: D50.9 Iron deficiency anemia, unspecified (principal)
CPT/HCPCS: J1756

== ENCOUNTER → 2023-02-07 | Outpatient (CLI) | payer MEDICARE, OTHER | LOC: RAD 09:37 → LAB 09:37 | DX: Z85.46 Personal history of malignant neoplasm of prostate (principal) ==

== ENCOUNTER → 2023-06-05 | Outpatient (CLI) | payer MEDICARE, OTHER ==
[~2023-06-05] MED LIST changes: -NAMENDA10 MG PO; +NAMENDA5 MG PO
== END ==
LOC: LAB 13:18
DX: D50.9 Iron deficiency anemia, unspecified (principal)

== ENCOUNTER → 2023-08-28 | Outpatient (CLI) | payer MEDICARE | LOC: LAB 09:21 | DX: Z85.46 Personal history of malignant neoplasm of prostate (principal) ==

== ENCOUNTER → 2023-12-03 | Outpatient (CLI) | payer MEDICARE ==
[2023-12-03 13:45] LABS: BASO # 0.02 K/mm3 (0.02-0.10); EOS # 0.17 K/mm3 (0.04-0.40); EOS % 2.6 % (0.0-4.0); HEMATOCRIT 47.6 % (42.0-52.0); HEMOGLOBIN 15.2 g/dL (13.5-18.0); LYMPH# 1.82 K/mm3 (1.50-4.00); MEAN CELL VOLUME 86 fl (78-100); MEAN CORPUSCULAR HEMOGLOBIN 27 pg (27-31); MEAN CORPUSCULAR HGB CONC 32 g/dL (33-37); MEAN PLATELET VOLUME 10.3 fl (7.4-10.4); MONO # 0.45 K/mm3 (0.20-0.80); NEU # 3.96 K/mm3 (1.40-6.50); PLATELET COUNT 172 K/mm3 (130-400); RED BLOOD COUNT 5.54 M/mm3 (4.20-5.60); RED CELL DISTRIBUTION WIDTH 15.4 % (11.5-14.5); WHITE BLOOD COUNT 6.4 K/mm3 (4.8-10.8)
[2023-12-03 13:54] LABS: ALBUMIN 3.8 g/dL (3.4-4.8)
[2023-12-03 13:55] LABS: CALCIUM 9.3 mg/dL (8.3-10.5)
[2023-12-03 13:57] LABS: TOTAL PROTEIN 7.4 g/dL (6.2-8.1)
[2023-12-03 13:58] LABS: TOTAL BILIRUBIN 0.6 mg/dL (0.2-1.2)
== END ==
LOC: LAB 13:25
PROVIDERS: Family Medicine
DX: C61 Malignant neoplasm of prostate (principal); E11.9 Type 2 diabetes mellitus without complications; D50.9 Iron deficiency anemia, unspecified; E78.5 Hyperlipidemia, unspecified; I10 Essential (primary) hypertension

== ENCOUNTER → 2024-01-26 | Outpatient (CLI) | payer MEDICARE ==
[2024-01-26 11:35] LABS: BASO # 0.04 K/mm3 (0.02-0.10); EOS # 0.19 K/mm3 (0.04-0.40); EOS % 2.9 % (0.0-4.0); HEMATOCRIT 47.4 % (42.0-52.0); HEMOGLOBIN 15.2 g/dL (13.5-18.0); LYMPH# 1.53 K/mm3 (1.50-4.00); MEAN CELL VOLUME 88 fl (78-100); MEAN CORPUSCULAR HEMOGLOBIN 28 pg (27-31); MEAN CORPUSCULAR HGB CONC 32 g/dL (33-37); MEAN PLATELET VOLUME 10.3 fl (7.4-10.4); MONO # 0.51 K/mm3 (0.20-0.80); NEU # 4.27 K/mm3 (1.40-6.50); PLATELET COUNT 140 K/mm3 (130-400); RED BLOOD COUNT 5.37 M/mm3 (4.20-5.60); RED CELL DISTRIBUTION WIDTH 15.4 % (11.5-14.5); WHITE BLOOD COUNT 6.6 K/mm3 (4.8-10.8)
[2024-01-26 12:04] LABS: CALCIUM 9.8 mg/dL (8.3-10.5)
== END ==
LOC: LAB 11:19
PROVIDERS: Nurse Practitioner Family
DX: M79.674 Pain in right toe(s) (principal)

== ENCOUNTER → 2024-02-01 | Outpatient (CLI) | payer MEDICARE ==
[~2024-02-01] VITALS: Ht 172.7 cm; Wt 92.0 kg
[~2024-02-01] MED LIST changes: +AMOXICILLIN AND1 TA2 PO; +ARICEPT10 M1 PO; +BACTRIM DS TAB1 EACH PO; +CARBIDOPA AND L1 OD1 PO; +INDERAL LA80 MG PO; +MEMANTINE HCL10 MG PO; -NAMENDA5 MG PO; +VESICARE10 MG PO
--- NOTE | 2024-02-01 09:14 | NUR ---
SEE NOTE FROM Trinidad SOW APRN
[2024-02-01 09:15] VITALS: BP 149/69
== END ==
LOC: WOUND 07:47
DX: S91.101D Unspecified open wound of right great toe without damage to nail, subsequent encounter (principal)
CPT/HCPCS: 18897; 19064; A6261

== ENCOUNTER → 2024-02-05 | Outpatient (CLI) | payer MEDICARE ==
[~2024-02-05] VITALS: Ht 172.7 cm; Wt 92.0 kg
[2024-02-05 13:20] VITALS: BP 139/73
--- NOTE | 2024-02-05 15:33 | NUR ---
see provider note from jeff blackwell aprn
== END ==
LOC: WOUND 13:01
DX: S91.101D Unspecified open wound of right great toe without damage to nail, subsequent encounter (principal)
CPT/HCPCS: 18897; 19899

== ENCOUNTER → 2024-02-05 | Outpatient (CLI) | payer MEDICARE | LOC: RAD 08:14 | DX: M19.071 Primary osteoarthritis, right ankle and foot (principal); S91.101D Unspecified open wound of right great toe without damage to nail, subsequent encounter ==

== ENCOUNTER → 2024-02-08 | Outpatient (CLI) | payer MEDICARE ==
[~2024-02-08] VITALS: Ht 172.7 cm; Wt 92.0 kg
[2024-02-08 10:12] VITALS: BP 156/68
--- NOTE | 2024-02-08 10:13 | NUR ---
SEE PROVIDER NOTE FROM Trinidad SOW APRN
== END ==
LOC: WOUND 09:51
DX: S91.101D Unspecified open wound of right great toe without damage to nail, subsequent encounter (principal)
CPT/HCPCS: 18897

== ENCOUNTER → 2024-02-11 | Outpatient (CLI) | payer MEDICARE ==
[2024-02-11 15:21] LABS: BASO # 0.03 K/mm3 (0.02-0.10); EOS # 0.23 K/mm3 (0.04-0.40); EOS % 3.7 % (0.0-4.0); HEMATOCRIT 47.7 % (42.0-52.0); HEMOGLOBIN 15.3 g/dL (13.5-18.0); LYMPH# 1.83 K/mm3 (1.50-4.00); MEAN CELL VOLUME 89 fl (78-100); MEAN CORPUSCULAR HEMOGLOBIN 29 pg (27-31); MEAN CORPUSCULAR HGB CONC 32 g/dL (33-37); MEAN PLATELET VOLUME 10.5 fl (7.4-10.4); NEU # 3.55 K/mm3 (1.40-6.50); PLATELET COUNT 194 K/mm3 (130-400); RED BLOOD COUNT 5.36 M/mm3 (4.20-5.60); RED CELL DISTRIBUTION WIDTH 15.3 % (11.5-14.5); WHITE BLOOD COUNT 6.3 K/mm3 (4.8-10.8)
[2024-02-11 15:24] LABS: ALBUMIN 4.2 g/dL (3.4-4.8)
[2024-02-11 15:27] LABS: TOTAL PROTEIN 8.1 g/dL (6.2-8.1)
[2024-02-11 15:29] LABS: TOTAL BILIRUBIN 0.5 mg/dL (0.2-1.2)
== END ==
LOC: LAB 14:47
PROVIDERS: Family Medicine
DX: M79.674 Pain in right toe(s) (principal)

== ENCOUNTER → 2024-02-12 | Outpatient (CLI) | payer MEDICARE ==
[~2024-02-12] MED LIST changes: +Gadoterate 20 ML VIAL IV ONE
== END ==
LOC: RAD 09:02
DX: G20.A1 Parkinson's disease without dyskinesia, without mention of fluctuations (principal); G31.9 Degenerative disease of nervous system, unspecified
CPT/HCPCS: A9575

== ENCOUNTER → 2024-02-15 | Outpatient (CLI) | payer MEDICARE ==
[~2024-02-15] VITALS: Ht 172.7 cm; Wt 92.0 kg
[~2024-02-15] MED LIST changes: -Gadoterate 20 ML VIAL IV ONE
[2024-02-15 11:58] VITALS: BP 126/64
== END ==
LOC: WOUND 11:21
DX: S91.101D Unspecified open wound of right great toe without damage to nail, subsequent encounter (principal)

== ENCOUNTER → 2024-02-22 | Outpatient (CLI) | payer MEDICARE ==
[~2024-02-22] VITALS: Ht 172.7 cm; Wt 92.0 kg
[~2024-02-22] MED LIST changes: +GAS-X125 MG PO; +INSULIN AS100 UNIT/3 SQ; +NORCO 325 MG-51 TA1 PO; +NOVOLOG 100U100 U/ML SQ; +TRESIBA100 UNIT/1 SQ; +ULTRA-LIGHT RO1 EACH MC; +WELLBUTRIN XL150 M2 PO
[2024-02-22 12:00] VITALS: BP 149/76
--- NOTE | 2024-02-22 12:01 | NUR ---
PT HERE FOR NURSE VISIT FOR WOUND CARE ON RIGHT GREAT TOE TODAY. ONLY WEARING A BANDAID OVER WOUND NOW. NO DRAINAGE NOTED. HOWEVER THE WOUND AREA IS NOW SCABBED OVER AND THE SCAB IS LIFTING ON THE EDGES. INSTRUCTED TO KEEP IT COVERED WHEN WEARING SOCKS OR IN BED SO IT DOESNT GET SNAGGED AND PULLED OFF PREMATURELY. CLEANED THE WOUND WITH HIBICLENS AND STERILE WATER. PATTED DRY WITH 4X4'S. THE SCABBED-OVER AREA MEASURED 2CM X 2CM TODAY. PICTURES TAKEN. THERE IS NO OPEN AREAS NOTED. NO ODOR OR REDNESS. STATES HE FINISHED HIS ANTIBIOTICS TODAY AND HAS A FOLLOW UP APPT WITH [facility]TH[facility] DOCTOR BRIANNA ON Sunday02/25/24. WILL CALL TO SCHEDULE A WOUND CARE APPT IF DR REED THINKS HE NEEDS TO CONTINUE. CLOTH BANDAID APPLIED TO WOUND AREA ON RIGHT GREAT TOE. PT LEFT FACILITY AMBULATORY WITH .
== END ==
LOC: WOUND 11:15
DX: S91.101D Unspecified open wound of right great toe without damage to nail, subsequent encounter (principal)

== ENCOUNTER → 2024-02-29 | Outpatient (CLI) | payer MEDICARE | LOC: LAB 08:37 | DX: C64.2 Malignant neoplasm of left kidney, except renal pelvis (principal) ==

== ENCOUNTER 2024-03-01 09:46 | Emergency (ER) | payer MEDICARE ==
[~2024-03-01] VITALS: Ht 172.7 cm; Wt 91.8 kg
[~2024-03-01 09:46] MED LIST changes: -GAS-X125 MG PO; -INSULIN AS100 UNIT/3 SQ; -NORCO 325 MG-51 TA1 PO; -NOVOLOG 100U100 U/ML SQ; -TRESIBA100 UNIT/1 SQ; -ULTRA-LIGHT RO1 EACH MC; -WELLBUTRIN XL150 M2 PO
[2024-03-01] MEDS ORDERED: Acetaminophen 325 MG TAB PO ONE (10:15)
[2024-03-01 10:40] LABS: CALCIUM 9.1 mg/dL (8.3-10.5)
[2024-03-01] MEDS ORDERED: NORCO 325 MG-51 TA1 PO (11:48)
[2024-03-01] MEDS ORDERED: ULTRA-LIGHT RO1 EACH MC (11:49)
[2024-03-01 12:07] VITALS: BP 134/72
== END 2024-03-01 12:08 | disposition home or self-care (01) ==
LOC: ED 09:46
PROVIDERS: Family Medicine
DX: M54.50 Low back pain, unspecified (principal); G20.A1 Parkinson's disease without dyskinesia, without mention of fluctuations; R29.6 Repeated falls; E11.9 Type 2 diabetes mellitus without complications; E66.9 Obesity, unspecified; Z85.46 Personal history of malignant neoplasm of prostate; Z85.528 Personal history of other malignant neoplasm of kidney; Z79.4 Long term (current) use of insulin; W18.30XA Fall on same level, unspecified, initial encounter

== ENCOUNTER 2024-03-02 13:21 | Observation (INO) | payer MEDICARE ==
[~2024-03-02] VITALS: Ht 177.8 cm; Wt 92.0 kg
[~2024-03-02 13:21] MED LIST changes: +NORCO 325 MG-51 TA1 PO; +ULTRA-LIGHT RO1 EACH MC
[2024-03-02] MEDS ORDERED: Naloxone 0.4 MG/ML VIAL IV ONE (13:45)
[2024-03-02] MEDS ORDERED: D5W 250 ML IV SCH (13:45)
[2024-03-02 13:46] LABS: BASO # 0.01 K/mm3 (0.02-0.10); EOS # 0.14 K/mm3 (0.04-0.40); EOS % 2.6 % (0.0-4.0); HEMATOCRIT 47.1 % (42.0-52.0); HEMOGLOBIN 14.7 g/dL (13.5-18.0); LYMPH# 1.14 K/mm3 (1.50-4.00); MEAN CELL VOLUME 93 fl (78-100); MEAN CORPUSCULAR HEMOGLOBIN 29 pg (27-31); MEAN CORPUSCULAR HGB CONC 31 g/dL (33-37); MEAN PLATELET VOLUME 10.4 fl (7.4-10.4); MONO # 0.61 K/mm3 (0.20-0.80); NEU # 3.43 K/mm3 (1.40-6.50); PLATELET COUNT 134 K/mm3 (130-400); RED BLOOD COUNT 5.09 M/mm3 (4.20-5.60); RED CELL DISTRIBUTION WIDTH 16.3 % (11.5-14.5); WHITE BLOOD COUNT 5.3 K/mm3 (4.8-10.8)
[2024-03-02 13:50] LABS: TOTAL PROTEIN 7.5 g/dL (6.2-8.1)
[2024-03-02 13:52] LABS: TOTAL BILIRUBIN 0.6 mg/dL (0.2-1.2)
[2024-03-02 14:45] LABS: PH-URINE 6.5 (5.0 - 8.0); URINE APPEARANCE CLEAR (CLEAR); URINE BILIRUBIN NEGATIVE (NEGATIVE); URINE BLOOD NEGATIVE (NEGATIVE); URINE COLOR YELLOW (YELLOW); URINE GLUCOSE 2+ (NEGATIVE); URINE KETONE NEGATIVE (NEGATIVE); URINE LEUKOCYTE ESTERASE NEGATIVE (NEGATIVE); URINE NITRATE NEGATIVE (NEGATIVE); URINE PROTEIN(semi-quant) NEGATIVE (NEGATIVE)
[2024-03-02] MEDS ORDERED: D5W 1,000 ML IV SCH (15:30)
[2024-03-02] MEDS ORDERED: NS 1,000 ML IV SCH (16:15)
[2024-03-02] MEDS ORDERED: Glucagon 1 MG VIAL IM PRN (16:15)
[2024-03-02] MEDS ORDERED: Polyethylene Glycol 3350 Powder 17 GM PACKET PO PRN (16:15)
[2024-03-02] MEDS ORDERED: Dextrose 50% Water 25 GM/50 ML SYRINGE IV PRN (16:15)
[2024-03-02] MEDS ORDERED: Acetaminophen 500 MG TAB PO PRN (16:15)
[2024-03-02] MEDS ORDERED: Dextrose (Glucose) 15 GM (4 x 3.75 GM) Chewable TAB PACK PO PRN (16:15)
[2024-03-02 16:16] VITALS: BP 150/70
[2024-03-02] MEDS ORDERED: Pregabalin 150 MG CAP PO SCH (17:00)
[2024-03-02] MEDS ORDERED: Insulin Lispro (HumaLOG) SQ SCH (17:00)
[2024-03-02] MEDS ORDERED: D5W 500 ML IV SCH (19:45)
[2024-03-02 20:03] VITALS: BP 165/78
[2024-03-02] MEDS ORDERED: Memantine 5 MG TAB PO SCH (21:00)
[2024-03-02] MEDS ORDERED: Pregabalin 50 MG CAP PO SCH (21:00)
[2024-03-02] MEDS ORDERED: Sulfamethoxazole/Trimethoprim 800-160 MG TAB PO SCH (21:00)
[2024-03-02] MEDS ORDERED: Docusate Sodium 100 MG CAP PO SCH (21:00)
[2024-03-02] MEDS ORDERED: Donepezil 5 MG TAB PO SCH (21:00)
[2024-03-02] MEDS ORDERED: Clindamycin 150 MG CAP PO SCH (21:00)
[2024-03-02] MEDS ORDERED: Insulin NPH/REG (NovoLIN 70/30) SQ SCH (21:00)
[2024-03-02] MEDS ORDERED: Mag/Al Hydrox/Simeth Susp 30 ML CUP PO ONE (23:45)
[2024-03-03 00:16] VITALS: BP 157/73
[2024-03-03 04:03] VITALS: BP 149/79
[2024-03-03 06:01] LABS: ALBUMIN 3.7 g/dL (3.4-4.8)
[2024-03-03 06:02] LABS: CALCIUM 9.1 mg/dL (8.3-10.5)
[2024-03-03 06:03] LABS: TOTAL PROTEIN 6.8 g/dL (6.2-8.1)
[2024-03-03 06:05] LABS: TOTAL BILIRUBIN 0.7 mg/dL (0.2-1.2)
[2024-03-03 06:08] LABS: BASO # 0.02 K/mm3 (0.02-0.10); EOS # 0.15 K/mm3 (0.04-0.40); EOS % 2.4 % (0.0-4.0); HEMATOCRIT 42.7 % (42.0-52.0); LYMPH# 1.17 K/mm3 (1.50-4.00); MEAN CELL VOLUME 89 fl (78-100); MEAN CORPUSCULAR HEMOGLOBIN 29 pg (27-31); MEAN CORPUSCULAR HGB CONC 33 g/dL (33-37); MEAN PLATELET VOLUME 10.3 fl (7.4-10.4); PLATELET COUNT 133 K/mm3 (130-400); RED BLOOD COUNT 4.78 M/mm3 (4.20-5.60); RED CELL DISTRIBUTION WIDTH 15.9 % (11.5-14.5); WHITE BLOOD COUNT 6.2 K/mm3 (4.8-10.8)
[2024-03-03 08:22] VITALS: BP 167/71
[2024-03-03] MEDS ORDERED: Losartan 25 MG TAB PO SCH (09:00)
[2024-03-03] MEDS ORDERED: Omega-3 Fatty Acid Esters 1,000 MG CAP PO SCH (09:00)
[2024-03-03] MEDS ORDERED: buPROPion XL (24-HR ER) 150 MG TAB PO SCH (09:00)
== END 2024-03-03 07:46 | disposition other institution (70) ==
LOC: ED 13:21 → MED/SURG 16:00
PROVIDERS: ADMIT Family Medicine
DX: R41.82 Altered mental status, unspecified (principal); G20.A1 Parkinson's disease without dyskinesia, without mention of fluctuations; E11.649 Type 2 diabetes mellitus with hypoglycemia without coma; E11.42 Type 2 diabetes mellitus with diabetic polyneuropathy; R53.1 Weakness; N17.9 Acute kidney failure, unspecified; R33.9 Retention of urine, unspecified; I10 Essential (primary) hypertension; E78.5 Hyperlipidemia, unspecified; K21.9 Gastro-esophageal reflux disease without esophagitis; F32.A Depression, unspecified; R35.0 Frequency of micturition; Z79.4 Long term (current) use of insulin; Z79.84 Long term (current) use of oral hypoglycemic drugs; Z79.82 Long term (current) use of aspirin; Z79.899 Other long term (current) drug therapy; Z85.46 Personal history of malignant neoplasm of prostate; Z85.528 Personal history of other malignant neoplasm of kidney; Z92.3 Personal history of irradiation
CPT/HCPCS: G0378; J1650; J2310; J7030; J7060

== ENCOUNTER 2024-03-03 07:46 | Inpatient (IN) | payer MEDICARE ==
[~2024-03-03] VITALS: Ht 177.8 cm; Wt 92.0 kg
--- NOTE | 2024-03-03 07:00 | NUR ---
REPORT RECEIVED FROM THALIA HERNANDEZ
--- NOTE | 2024-03-03 07:46 | NUR ---
PATIENT ADMIT STATUS CHANGED FROM OBSERVATION TO ACUTE
[2024-03-03] MEDS ORDERED: Acetaminophen 500 MG TAB PO PRN (08:00)
[2024-03-03] MEDS ORDERED: Polyethylene Glycol 3350 Powder 17 GM PACKET PO PRN (08:00)
[2024-03-03] MEDS ORDERED: Dextrose 50% Water 25 GM/50 ML SYRINGE IV PRN (08:15)
[2024-03-03] MEDS ORDERED: D5W 1,000 ML IV SCH (08:15)
[2024-03-03] MEDS ORDERED: Glucagon 1 MG VIAL IM PRN (08:15)
[2024-03-03] MEDS ORDERED: Dextrose (Glucose) 15 GM (4 x 3.75 GM) Chewable TAB PACK PO PRN (08:15)
--- NOTE | 2024-03-03 08:45 | NUR ---
PATIENT CALLED FOR UPDATE
[2024-03-03] MEDS ORDERED: Clindamycin 150 MG CAP PO SCH (09:00)
[2024-03-03] MEDS ORDERED: Sulfamethoxazole/Trimethoprim 800-160 MG TAB PO SCH (09:00)
[2024-03-03] MEDS ORDERED: Docusate Sodium 100 MG CAP PO SCH (09:00)
[2024-03-03] MEDS ORDERED: Losartan 25 MG TAB PO SCH (09:00)
[2024-03-03] MEDS ORDERED: Memantine 5 MG TAB PO SCH (09:00)
[2024-03-03] MEDS ORDERED: buPROPion XL (24-HR ER) 150 MG TAB PO SCH (09:00)
[2024-03-03] MEDS ORDERED: Pregabalin 50 MG CAP PO SCH ×2 (09:00→21:00)
[2024-03-03] MEDS ORDERED: Omega-3 Fatty Acid Esters 1,000 MG CAP PO SCH (09:00)
--- NOTE | 2024-03-03 09:00 | NUR ---
SPOKE WITH PATIENT'S SON PARVIN ( GAVE PERMISSION TO SPEAK WITH SON) PLEASE CALL SON WITH ANY QUESTIONS [phone]
--- NOTE | 2024-03-03 09:15 | NUR ---
PATIENT RESTING IN BED WITH EYES CLOSED, AROUSABLE TO VOICE UPON ENTERING ROOM. PATIENT IS A&Ox2, DENIES PAIN AT THIS TIME. PATIENT IS TALKING TO HIMSELF AND STATES HE IS PLAYING A GAME. ASSESSMENT COMPLETE. PATIENT REEDUCATED ON USE OF CALL LIGHT. PATIENT HAS D5W RUNNING AT 50ML/HR. BLOOD SUGARS ARE STABLE AT THIS TIME. PATIENT DENIES OTHER NEEDS OR COMPLAINTS AT THIS TIME. BED ALARM ON, CALL LIGHT WITHIN REACH.
--- NOTE | 2024-03-03 10:45 | NUR ---
PATIENT SLIDING DOWN ON BED, THIS NURSE AND PCT BOOSTED PATIENT IN BED. PATIENT CONTINUING TO HAVE HALLUCINTAIONS
[2024-03-03 11:02] VITALS: BP 159/70
[2024-03-03 11:25] VITALS: BP 164/78
--- NOTE | 2024-03-03 13:30 | NUR ---
PATIENT ALARM GOING OFF, PATIENT OUT OF BED TRYING TO WALK AROUND ROOM, STATING "I JUST NEED TO GET ALL THIS STUFF DONE" THIS NURSE AND OTHER NURSE ASSISTED PATIENT BACK TO BED. BED ALARM SET, PATIENT REEDUCATED ON USE OF CALL LIGHT. CALL LIGHT WITHIN REACH.
--- NOTE | 2024-03-03 14:00 | NUR ---
ORDERS RECEIVED ACCU CHECKS Q2 X 2 TIMES IF STAYS ABOVE 100 MAY CHANGE TO Q4 PER DR. CUENCA. REPORT BLOOD SUGARS LESS THAN 100 AND GREATER THAN [address] CUENCA
--- NOTE | 2024-03-03 15:00 | NUR ---
PATIENT CONTINUES HAVING HALLUCINTATIONS. PICKING AT THE BLANKET ON THE BED, STATES "THERE THEY GO RUNNING ACROSS AGAIN"
[2024-03-03] MEDS ORDERED: Insulin NPH/REG (NovoLIN 70/30) SQ SCH (17:00)
[2024-03-03 18:00] VITALS: BP 158/69
--- NOTE | 2024-03-03 18:15 | NUR ---
PATIENT SON CALLED AND HAS ASKED ABOUT MEDICATION CHANGES, PROVIDER AWARE.
--- NOTE | 2024-03-03 18:40 | NUR ---
PROVIDER SPOKE WITH PATIENTS SON AT THIS TIME
[2024-03-03 19:30] VITALS: BP 133/74
[2024-03-03] MEDS ORDERED: Donepezil 5 MG TAB PO SCH (21:00)
--- NOTE | 2024-03-03 22:33 | NUR ---
PT ALERT AND ORIENTED TO SELF ONLY, PT HAS HALUCINATIONS AND IS NOT ABLE TO REORIENT. PROVIDER ROSAS NOTIFIED THAT PT IS NOT FULLY ALERT AND ORIENTED. PT ASSESSED AND MEDICATIONS GIVEN WITHOUT COMPLICATION. PT CURRENTLY HAS D5 RUNNING AT 50ML/HR. PT CALLED TO CONFIRM SHE SENT [employer] PAPERWORK VIA EMAIL. PT DENIES ANY FURHTER NEEDS AT THIS TIME. PT NOW RESTING IN BED WITH 3 SIDE RAILS UP AND BED SET ON MOST SENSITIVE SETTING FOR PT SAFETY.
[2024-03-03 22:34] VITALS: BP 149/72
--- NOTE | 2024-03-04 04:30 | NUR ---
pt has halucinations, provider austin hartman
[2024-03-04 06:31] LABS: BASO # 0.03 K/mm3 (0.02-0.10); EOS # 0.24 K/mm3 (0.04-0.40); EOS % 4.4 % (0.0-4.0); HEMATOCRIT 43.9 % (42.0-52.0); LYMPH# 1.53 K/mm3 (1.50-4.00); MEAN CELL VOLUME 90 fl (78-100); MEAN CORPUSCULAR HEMOGLOBIN 29 pg (27-31); MEAN CORPUSCULAR HGB CONC 32 g/dL (33-37); MEAN PLATELET VOLUME 10.2 fl (7.4-10.4); MONO # 0.68 K/mm3 (0.20-0.80); NEU # 2.97 K/mm3 (1.40-6.50); PLATELET COUNT 135 K/mm3 (130-400); RED BLOOD COUNT 4.86 M/mm3 (4.20-5.60); WHITE BLOOD COUNT 5.5 K/mm3 (4.8-10.8)
[2024-03-04 06:38] LABS: ALBUMIN 3.8 g/dL (3.4-4.8)
[2024-03-04 06:41] LABS: TOTAL PROTEIN 6.9 g/dL (6.2-8.1)
[2024-03-04 06:42] LABS: TOTAL BILIRUBIN 0.8 mg/dL (0.2-1.2)
[2024-03-04 07:22] VITALS: BP 143/73
[2024-03-04 11:26] VITALS: BP 148/75
[2024-03-04 15:00] VITALS: BP 153/78
--- NOTE | 2024-03-04 15:29 | NUR ---
PATIENT'S CALLED @1230 THAT PATIENT WAS GETTING TRANSFERED TO [facility]. NURSE TO NURSE REPORT CALLED @1320. PAPERWORK GIVEN TO EMS. WAS ABLE TO FIND A RIDE TO BE ABLE TO SEE BEFORE HE LEFT. PATIENT STILL ALERT BUT CONFUSED. HE IS ORIENTED TO SELF. PATIENT LEFT WITH D5W 50ML/HR RUNNING. PATIENT HAD BEGUN SCRATCHING HIS STOMACH AROUND WHAT APPEARED TO BE A HERNIA. IT HAD A SMALL AMOUNT OF BLOOD FROM HIM SCRATCHING, SO A BANDAID WAS PLACED OVER AREA. PATIENT HAVING AUDITORY HALLUCINATIONS. PATIENT TRANSFERED TO [facility] RM [id number].
[2024-03-08] MEDS ORDERED: Pregabalin 50 MG CAP PO SCH (09:00)
[2024-03-10] MEDS ORDERED: Pregabalin 50 MG CAP PO SCH (09:00)
== END 2024-03-04 13:40 | disposition short-term general hospital (02) | DRG 57 ==
LOC: MED/SURG 07:46
PROVIDERS: ADMIT Family Medicine
DX: G31.83 Neurocognitive disorder with Lewy bodies (principal); N17.9 Acute kidney failure, unspecified; G20.A1 Parkinson's disease without dyskinesia, without mention of fluctuations; F02.80 Dementia in other diseases classified elsewhere, unspecified severity, without behavioral disturbance, psychotic disturbance, mood disturbance, and anxiety; E11.649 Type 2 diabetes mellitus with hypoglycemia without coma; Z79.84 Long term (current) use of oral hypoglycemic drugs; I10 Essential (primary) hypertension; E78.5 Hyperlipidemia, unspecified; E11.42 Type 2 diabetes mellitus with diabetic polyneuropathy; F32.A Depression, unspecified; R33.9 Retention of urine, unspecified; K21.9 Gastro-esophageal reflux disease without esophagitis; Z66 Do not resuscitate; R35.0 Frequency of micturition; Z79.4 Long term (current) use of insulin
CPT/HCPCS: J1650; J7070

== ENCOUNTER 2024-03-07 12:26 | Inpatient (IN) | payer MEDICARE ==
[~2024-03-07] VITALS: Ht 172.7 cm; Wt 86.5 kg
[2024-03-07] MEDS ORDERED: WELLBUTRIN XL150 M2 PO (13:25)
[2024-03-07] MEDS ORDERED: CARBIDOPA/LEVODOPA PO (13:26)
[2024-03-07] MEDS ORDERED: INSULIN AS100 UNIT/3 SQ (13:28)
[2024-03-07] MEDS ORDERED: TRESIBA100 UNIT/1 SQ (13:30)
[2024-03-07] MEDS ORDERED: LYRICA100 MG PO (13:34)
[2024-03-07] MEDS ORDERED: GAS-X125 MG PO (13:37)
[2024-03-07] MEDS ORDERED: NOVOLOG 100U100 U/ML SQ (13:40)
[2024-03-07] MEDS ORDERED: Bisacodyl 5 MG TAB PO PRN (17:15)
[2024-03-07] MEDS ORDERED: Polyethylene Glycol 3350 Powder 17 GM PACKET PO PRN (17:15)
[2024-03-07] MEDS ORDERED: Acetaminophen 325 MG TAB PO PRN (17:15)
[2024-03-07] MEDS ORDERED: Docusate Sodium 100 MG CAP PO PRN (17:30)
[2024-03-07 18:08] VITALS: BP 175/84
[2024-03-07] MEDS ORDERED: Pregabalin 50 MG CAP PO SCH (21:00)
[2024-03-07] MEDS ORDERED: Insulin Lispro (HumaLOG) SQ SCH (21:00)
[2024-03-07] MEDS ORDERED: Memantine 5 MG TAB PO SCH (21:00)
[2024-03-07] MEDS ORDERED: Insulin Glargine-yfgn (Lantus) SQ SCH (21:00)
[2024-03-07] MEDS ORDERED: Donepezil 5 MG TAB PO SCH (21:00)
[2024-03-07 21:29] VITALS: BP 167/73
[2024-03-08 06:42] LABS: BASO # 0.03 K/mm3 (0.02-0.10); EOS # 0.17 K/mm3 (0.04-0.40); EOS % 2.7 % (0.0-4.0); HEMATOCRIT 43.8 % (42.0-52.0); HEMOGLOBIN 14.7 g/dL (13.5-18.0); LYMPH# 1.68 K/mm3 (1.50-4.00); MEAN CELL VOLUME 90 fl (78-100); MEAN CORPUSCULAR HEMOGLOBIN 30 pg (27-31); MEAN CORPUSCULAR HGB CONC 34 g/dL (33-37); MEAN PLATELET VOLUME 10.4 fl (7.4-10.4); MONO # 0.64 K/mm3 (0.20-0.80); NEU # 3.85 K/mm3 (1.40-6.50); PLATELET COUNT 166 K/mm3 (130-400); RED BLOOD COUNT 4.87 M/mm3 (4.20-5.60); RED CELL DISTRIBUTION WIDTH 15.9 % (11.5-14.5); WHITE BLOOD COUNT 6.4 K/mm3 (4.8-10.8)
[2024-03-08 07:32] VITALS: BP 110/58
[2024-03-08] MEDS ORDERED: Insulin Lispro (HumaLOG) SQ SCH (08:00)
[2024-03-08] MEDS ORDERED: Multivitamin TAB PO SCH (09:00)
[2024-03-08] MEDS ORDERED: Losartan 25 MG TAB PO SCH (09:00)
[2024-03-08] MEDS ORDERED: Omega-3 Fatty Acid Esters 1,000 MG CAP PO SCH (09:00)
[2024-03-08] MEDS ORDERED: buPROPion XL (24-HR ER) 150 MG TAB PO SCH (09:00)
[2024-03-08 19:00] VITALS: BP 138/66
[2024-03-09 07:00] VITALS: BP 132/70
[2024-03-09 19:00] VITALS: BP 132/66
[2024-03-10 07:20] VITALS: BP 131/76
[2024-03-10 19:00] VITALS: BP 115/66
[2024-03-10] MEDS ORDERED: Memantine 10 MG TAB PO SCH (21:00)
[2024-03-11 07:00] VITALS: BP 145/69
[2024-03-11 19:00] VITALS: BP 133/62
[2024-03-12 06:03] LABS: BASO # 0.02 K/mm3 (0.02-0.10); EOS # 0.27 K/mm3 (0.04-0.40); EOS % 4.3 % (0.0-4.0); HEMATOCRIT 43.3 % (42.0-52.0); HEMOGLOBIN 14.2 g/dL (13.5-18.0); MEAN CELL VOLUME 90 fl (78-100); MEAN CORPUSCULAR HEMOGLOBIN 30 pg (27-31); MEAN CORPUSCULAR HGB CONC 33 g/dL (33-37); MEAN PLATELET VOLUME 10.4 fl (7.4-10.4); MONO # 0.61 K/mm3 (0.20-0.80); NEU # 3.61 K/mm3 (1.40-6.50); PLATELET COUNT 183 K/mm3 (130-400); RED BLOOD COUNT 4.79 M/mm3 (4.20-5.60); RED CELL DISTRIBUTION WIDTH 15.7 % (11.5-14.5); WHITE BLOOD COUNT 6.2 K/mm3 (4.8-10.8)
[2024-03-12 06:18] LABS: ALBUMIN 3.6 g/dL (3.4-4.8)
[2024-03-12 06:19] LABS: CALCIUM 8.5 mg/dL (8.3-10.5)
[2024-03-12 06:20] LABS: TOTAL PROTEIN 6.7 g/dL (6.2-8.1)
[2024-03-12 06:22] LABS: TOTAL BILIRUBIN 0.8 mg/dL (0.2-1.2)
[2024-03-12 07:00] VITALS: BP 154/77
[2024-03-12] MEDS ORDERED: Pregabalin 50 MG CAP PO SCH (14:00)
[2024-03-12 20:00] VITALS: BP 145/63
[2024-03-13 07:31] VITALS: BP 152/73
[2024-03-13] MEDS ORDERED: buPROPion XL (24-HR ER) 150 MG TAB PO SCH (09:00)
[2024-03-13 19:00] VITALS: BP 125/71
[2024-03-13] MEDS ORDERED: Polyethylene Glycol 3350 Powder 17 GM PACKET PO SCH (21:00)
[2024-03-14 07:30] VITALS: BP 161/71
[2024-03-14 19:00] VITALS: BP 131/67
[2024-03-15 07:30] VITALS: BP 153/74
[2024-03-15 19:10] VITALS: BP 103/67
[2024-03-16 07:23] VITALS: BP 160/79
[2024-03-16 19:05] VITALS: BP 132/61
[2024-03-17 08:03] VITALS: BP 169/71
[2024-03-17] MEDS ORDERED: Pregabalin 50 MG CAP PO SCH (09:00)
[2024-03-17 16:35] VITALS: BP 117/66
[2024-03-17 22:04] VITALS: BP 147/68
[2024-03-18 07:20] VITALS: BP 161/81
[2024-03-18 19:00] VITALS: BP 158/70
[2024-03-19 06:12] LABS: BASO # 0.04 K/mm3 (0.02-0.10); EOS % 5.6 % (0.0-4.0); HEMATOCRIT 42.5 % (42.0-52.0); HEMOGLOBIN 13.7 g/dL (13.5-18.0); LYMPH# 1.52 K/mm3 (1.50-4.00); MEAN CELL VOLUME 91 fl (78-100); MEAN CORPUSCULAR HEMOGLOBIN 29 pg (27-31); MEAN CORPUSCULAR HGB CONC 32 g/dL (33-37); MEAN PLATELET VOLUME 10.5 fl (7.4-10.4); PLATELET COUNT 184 K/mm3 (130-400); RED BLOOD COUNT 4.66 M/mm3 (4.20-5.60); RED CELL DISTRIBUTION WIDTH 14.8 % (11.5-14.5); WHITE BLOOD COUNT 5.4 K/mm3 (4.8-10.8)
[2024-03-19 07:10] VITALS: BP 137/72
[2024-03-19] MEDS ORDERED: INSULIN LI100 UNIT/1 SQ (11:09)
[2024-03-19] MEDS ORDERED: [UNRECOGNIZED DRUG - OTHER] SC (11:09)
[2024-03-19] MEDS ORDERED: TRESIBA100 UNIT/1 SQ (11:12)
[2024-03-19] MEDS ORDERED: [UNRECOGNIZED DRUG - SUPPLY] SC (11:16)
[2024-03-19] MEDS ORDERED: LYRICA100 MG PO (14:38)
== END 2024-03-19 11:19 | disposition home or self-care (01) | DRG 948 ==
LOC: MED/SURG 12:26
PROVIDERS: ADMIT Family Medicine
DX: R53.81 Other malaise (principal); G20.A1 Parkinson's disease without dyskinesia, without mention of fluctuations; F02.C0 Dementia in other diseases classified elsewhere, severe, without behavioral disturbance, psychotic disturbance, mood disturbance, and anxiety; E11.42 Type 2 diabetes mellitus with diabetic polyneuropathy; E11.649 Type 2 diabetes mellitus with hypoglycemia without coma; I10 Essential (primary) hypertension; F32.A Depression, unspecified; K21.9 Gastro-esophageal reflux disease without esophagitis; Z66 Do not resuscitate; Z79.82 Long term (current) use of aspirin; Z79.4 Long term (current) use of insulin; Z88.5 Allergy status to narcotic agent; E78.5 Hyperlipidemia, unspecified; R33.9 Retention of urine, unspecified
CPT/HCPCS: J1815

== ENCOUNTER → 2024-03-25 | Outpatient (CLI) | payer MEDICARE ==
[~2024-03-25] VITALS: Ht 172.7 cm; Wt 86.5 kg
[~2024-03-25] MED LIST changes: +GAS-X125 MG PO; +INSULIN AS100 UNIT/3 SQ; +INSULIN LI100 UNIT/1 SQ; +NOVOLOG 100U100 U/ML SQ; +TRESIBA100 UNIT/1 SQ; +WELLBUTRIN XL150 M2 PO; +[UNRECOGNIZED DRUG - OTHER] SC; +[UNRECOGNIZED DRUG - SUPPLY] SC
--- NOTE | 2024-03-25 10:00 | NUR ---
PATIENT HERE FOR WOUND CARE TO RIGHT GREAT TOE. [facility]'S REPORTS CHANGING THE DRESSING LAST SUNDAY. PERIWOUND MACCERATED. 2 OPEN AREAS NOTED. AREA CLEANSED WITH HIBICLENSE AND DEBRISOFT LOLLI. AQUACEL EXTRA, OPTILOCK, AND MEDIPORE TAPE PLACED ON WOUND BED. MEASUREMENTS TAKEN, ANTERIOR WOUND LENGTH: 0.4CM WIDTH: 0.7CM. POSTERIOR WOUND LENGTH: 0.1CM WIDTH: 0.2CM. PHOTOGRAPHS TAKEN. INSTRUCTED TO CHANGE DRESSING EVERY 48 HOURS. SCHEULED FOR NEXT SUNDAY.
[2024-03-25 10:03] VITALS: BP 183/68
== END ==
LOC: WOUND 09:50
DX: S91.101D Unspecified open wound of right great toe without damage to nail, subsequent encounter (principal)
CPT/HCPCS: 18897; 19899

== ENCOUNTER 2024-03-26 14:00 | Outpatient (RCR) | payer MEDICARE | END 2024-03-28 | LOC: PT | DX: R53.81 Other malaise (principal) ==

== ENCOUNTER → 2024-03-26 | Outpatient (CLI) | payer MEDICARE | LOC: LAB 10:10 | DX: E11.9 Type 2 diabetes mellitus without complications (principal); D50.9 Iron deficiency anemia, unspecified ==

== ENCOUNTER → 2024-04-02 | Outpatient (CLI) | payer MEDICARE ==
[~2024-04-02] VITALS: Ht 172.7 cm; Wt 86.5 kg
[2024-04-02 13:14] VITALS: BP 162/84
--- NOTE | 2024-04-02 13:52 | NUR ---
PT HERE FOR WOUND CARE TO RT GREAT TOE. MINIMAL BLOODY DRNG NOTED ON OLD DRSG. K BRUNING IN TO DEBRIDE WOUND. PT JOSE WELL. SEE PROVIDER NOTE. CLEANED WITH HIBICLENS AND DEBRISOFT LOLLY AND LAVAGED WITH STERILE WATER. APPLIED IODOSORB AQUACEL EXTRA AND MEPILEX BORDER FOAM. WILL CHANGE EVERY 2-3 DAYS AT HOME AND RETURN IN 1 WEEK. SEE PROVIDER NOTE FOR MEASUREMENTS
== END ==
LOC: WOUND 13:00
DX: S91.101D Unspecified open wound of right great toe without damage to nail, subsequent encounter (principal)
CPT/HCPCS: 18897; 19064; A6261

== ENCOUNTER → 2024-04-04 | Outpatient (CLI) | payer MEDICARE | LOC: RAD 16:00 | DX: M47.816 Spondylosis without myelopathy or radiculopathy, lumbar region (principal); M48.56XA Collapsed vertebra, not elsewhere classified, lumbar region, initial encounter for fracture; M51.360 Other intervertebral disc degeneration, lumbar region with discogenic back pain only; M51.370 Other intervertebral disc degeneration, lumbosacral region with discogenic back pain only ==